=== PATIENT | male | born 1985 | race Caucasian/White ===

== ENCOUNTER 2024-04-13 21:14 | Inpatient (IN) | payer OTHER ==
[2024-04-13 21:32] VITALS: BMI 29.7
[2024-04-13] MEDS ORDERED: BENZONATATE 200 MG CAPSULE PO PRN (22:22)
[2024-04-13] MEDS ORDERED: NICOTINE POLACRILEX 2 MG LOZENGE BC PRN (22:22)
[2024-04-13] MEDS ORDERED: MAG HYDROX/AL HYDROX/SIMETH 30 ML UNIT-DOSE CUP PO PRN (22:22)
[2024-04-13] MEDS ORDERED: guaiFENesin 600 MG TABLET.ER (FP) PO PRN (22:22)
[2024-04-13] MEDS ORDERED: LOPERAMIDE HCL 2 MG CAPSULE PO PRN (22:22)
[2024-04-13] MEDS ORDERED: BENZOCAINE/MENTHOL (CHLORASEPTIC ) LOZENGE MM PRN (22:22)
[2024-04-13] MEDS ORDERED: IBUPROFEN 400 MG TABLET (FP) PO PRN (22:22)
[2024-04-13] MEDS ORDERED: BISACODYL 5 MG TABLET.DR (FP) PO PRN (22:22)
[2024-04-13] MEDS ORDERED: hydrOXYzine PAMOATE 25 MG CAPSULE (FP) PO PRN (22:22)
[2024-04-13] MEDS ORDERED: MAGNESIUM HYDROX 2400MG/30ML ORAL SUSPENSION 30 ML CUP PO PRN (22:22)
[2024-04-13] MEDS ORDERED: DOCUSATE SODIUM 100 MG CAPSULE (FP) PO PRN (22:22)
[2024-04-13] MEDS ORDERED: POLYETHYLENE GLYCOL (HEALTHYLAX) 3350 17 GM PACKET PO PRN (22:22)
[2024-04-13] MEDS ORDERED: ACETAMINOPHEN 325 MG TABLET (FP) PO PRN (22:22)
[2024-04-13] MEDS: MELATONIN 5 MG TABLETS PO SCH (22:58)
[2024-04-14 08:32] LABS: CHLORIDE 112 mmol/L (98-107); POTASSIUM 3.6 mmol/L (3.5-5.1); SODIUM 142 mmol/L (136-145)
[2024-04-14 08:34] LABS: HEMATOCRIT 48.7 % (35.4-49); HEMOGLOBIN 16.4 GM/dL (11.7-16.9); MCH 32.9 pg (25.7-33.7); MCHC 33.8 g/dl (32.0-35.9); MEAN CELL VOLUME 97.5 fl (80-96); MEAN PLT VOLUME 7.4 fl (7.5-11.1); PLATELET COUNT 229 10^3/uL (134-434); RBC 4.99 M/mm3 (4.00-5.60); RDW 14.1 % (11.9-15.9); WHITE BLOOD COUNT 9.3 K/mm3 (4.0-10.0)
[2024-04-14 08:37] LABS: ALBUMIN 3.7 g/dl (3.4-5.0); ANION GAP 6 mmol/L (4-13); BLOOD UREA NITROGEN 12.8 mg/dL (7-18); CO2 24 mmol/L (21-32); GLUCOSE,RANDOM 124 mg/dL (74-106)
[2024-04-14 08:38] LABS: CALCIUM 8.7 mg/dL (8.5-10.1)
[2024-04-14 08:39] LABS: SGPT/ALT 25 U/L (13-61)
[2024-04-14 08:40] LABS: SGOT/AST 11 U/L (15-37)
[2024-04-14 08:41] LABS: BILIRUBIN,TOTAL 0.2 mg/dL (0.2-1); TOT PROT 6.6 g/dl (6.4-8.2)
[2024-04-14 08:42] LABS: ALK PHOS 144 U/L (45-117)
[2024-04-14] MEDS: PRENATAL VITAMINS W/ FOLIC ACID TABLET (FP) PO SCH (09:35)
[2024-04-14] MEDS: TUBERCULIN PPD 5 TU/0.1ML SYRINGE (IN PATIENT USE ONLY) ID ONE (09:40)
[2024-04-14] MEDS: THIAMINE 100 MG TABLET PO SCH (22:33)
[2024-04-15 06:11] VITALS: TEMP 97.9
[2024-04-15] MEDS: IBUPROFEN 600 MG TABLET (FP) PO PRN (06:58)
[2024-04-15] MEDS: NICOTINE POLACRILEX 2 MG GUM BUC PRN (12:37)
[2024-04-15 13:12] VITALS: BP 130/74; PULSE 81; RESP 18
[2024-04-15] MEDS: NALOXONE (NYS OPIOID OVERDOSE PROGRAM) 4 MG/0.1 ML SPRAY NS SCH (13:53)
== END 2024-04-15 14:11 | disposition left against medical advice (07) | DRG 770 ==
LOC: YASAS 21:14 → Y3NR 22:58 → Y3E 04-15 11:47
PROVIDERS: ADMIT Psychiatry & Neurology Pain Medicine; ATTEND Psychiatry & Neurology Pain Medicine
PROC: HZ42ZZZ Group Counseling for Substance Abuse Treatment, Cognitive-Behavioral (ICD-10-PCS; principal; 2024-04-13)
DX: F14.20 Cocaine dependence, uncomplicated (principal); F17.210 Nicotine dependence, cigarettes, uncomplicated
CPT/HCPCS: 36415; 71046-TC-FY; 80053; 80307; 85027; 86780; 93005; 93010